=== PATIENT | female | born 1985 | race Caucasian/White ===

== ENCOUNTER 2016-09-02 08:38 | Emergency (ER) | payer MEDICAID ==
[~2016-09-02] VITALS: Ht 180.3 cm; Wt 66.5 kg
[~2016-09-02 08:38] MED LIST: VIST25CA PO
[2016-09-02 08:43] VITALS: BP 117/77; PULSE 77; RESP 16; TEMP 98.1; O2SAT 99
[2016-09-02] MEDS ORDERED: PREV30CA11 PO (09:03)
--- NOTE | 2016-09-02 09:04 | PD ---
HPI Chief Complaint: Abdominal Pain Time Seen by Provider: 08:47 Travel History International Travel<30 days: No Contact w/Intl Traveler<30days: No Traveled to known affect area: No History of Present Illness HPI This 31-year-old female says she is having burning epigastric pain. She says she been having the pain for about a year. 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 She was told was normal and she was put on some medication which she has run out of. The medication didn't seem to help. At times she has dry heaves. She has adjusted her diet. She stopped drinking red bull. She does not eat any hot food. She has stopped coffee. She says the pain has been getting progressively worse. She occasionally smokes pot and seems to get some relief with that. She is to be on a lot of anti-inflammatory medications and does not been taking any of that. She does say she is having some weight. She has little energy. She does not smoke or drink alcohol. She had a tubal ligation 3 years ago. PFSH Past Medical History Hx Anticoagulant Therapy: No Diabetes: No Diminished Hearing: No Hypertension: Yes ?: Not Tubal Ligation: Yes Past Surgical History AICD: No Joint Replacement: No Pacemaker: No Other Surgery: Yes Social History Alcohol Use: No Tobacco Use: No Substance Use: No Allergies-Medications (Allergen,Severity, Reaction): Coded Allergies: Demerol (Verified Allergy, Intermediate, 09/02/16) Reported Meds & Prescriptions Reported Meds & Active Scripts Active Vistaril (Hydroxyzine Pamoate) 25 Mg Cap 25 Mg PO Q8H PRN Review of Systems General / Constitutional: Positive: Weight Loss, No: Fever, Chills Eyes: No: Diploplia, Blurred Vision HENT: No: Headaches, Vertigo Cardiovascular: No: Chest Pain or Discomfort, Palpitations Respiratory: No: Cough Gastrointestinal: Positive: Nausea, Abdominal Pain, Indigestion Genitourinary: No: Frequency, Dysuria Musculoskeletal: No: Myalgias, Arthralgias Skin: No Rash, No Itching Neurologic: Positive: Weakness Psychiatric: No: Anxiety, Depression Physical Exam Narrative GENERAL: Well-developed female SKIN: Focused skin assessment warm/dry. HEAD: Atraumatic. Normocephalic. EYES: Pupils equal and round. No scleral icterus. No injection or drainage. ENT: No nasal bleeding or discharge. Mucous membranes pink and moist. NECK: Trachea midline. No JVD. CARDIOVASCULAR: Regular rate and rhythm. No murmur appreciated. RESPIRATORY: No accessory muscle use. Clear to auscultation. Breath sounds equal bilaterally. GASTROINTESTINAL: Abdomen soft, there is some epigastric tenderness, nondistended. Hepatic and splenic margins not palpable. MUSCULOSKELETAL: No obvious deformities. No clubbing. No cyanosis. No edema. NEUROLOGICAL: Awake and alert. No obvious cranial nerve deficits. Motor grossly within normal limits. Normal speech. PSYCHIATRIC: Appropriate mood and affect; insight and judgment normal. Data Data Last Documented VS Vital Signs Date Time Temp Pulse Resp B/P Pulse Ox O2 Delivery O2 Flow Rate FiO2 09/02/16 08:43 98.1 77 16 117/77 99 Orders Urinalysis - C+S If Indicated (09/02/16 08:45) MDM Medical Decision Making Medical Screen Exam Complete: Yes Emergency Medical Condition: Yes Medical Record Reviewed: Yes Differential Diagnosis Differential includes gastritis, ulcer disease, pancreatitis Narrative Course History is most consistent with gastritis or ulcer disease. I offered to do lab work and CT scan to assess for other etiologies that the patient says she does not have time for these tests at this time. I will prescribe Prevacid and I have recommended that she follow up with her GI doctor Diagnosis Primary Impression: Gastritis Qualified Code: K29.70 - Gastritis without bleeding, unspecified chronicity, unspecified gastritis type Scripts Lansoprazole (Prevacid)30 Mg Capdr30 Mg PO DAILY #30 CAP Ref 0 Prov:John Oconnell MD 09/02/16 Disposition: 01 DISCHARGE HOME Condition: Stable John Oconnell MD September 02, 2016 09:04
== END 2016-09-02 09:21 | disposition home or self-care (01) ==
LOC: PHED 08:38
DX: K29.70 Gastritis, unspecified, without bleeding (principal); R53.1 Weakness; I10 Essential (primary) hypertension
CPT/HCPCS: 99283

== ENCOUNTER 2016-12-11 03:51 | Emergency (ER) | payer MEDICAID ==
[~2016-12-11] VITALS: Ht 180.3 cm; Wt 67.1 kg
[~2016-12-11 03:51] MED LIST changes: +PREV30CA11 PO; -VIST25CA PO
[2016-12-11 04:00] VITALS: BP 126/60; PULSE 72; RESP 18; TEMP 98; O2SAT 97
[2016-12-11 04:11] VITALS: BP 126/60; PULSE 72; RESP 18; TEMP 98; O2SAT 97
[2016-12-11 04:46] VITALS: RESP 18; O2SAT 98
[2016-12-11 04:50] LABS: AUTOMATED NEUTROPHIL # 2.6 TH/MM3 (1.8-7.7); EOSINOPHIL # 0.1 TH/MM3 (0-0.4); EOSINOPHIL % 2.4 % (0.0-4.0); HEMATOCRIT 37.9 % (35.0-46.0); HEMO FLAGS DIFF FINAL; LYMPH % 31.7 % (9.0-44.0); LYMPHOCYTE # 1.6 TH/MM3 (1.0-4.8); MEAN CORPUSCULAR HEMOGLOBIN 28.5 PG (27.0-34.0); MEAN CORPUSCULAR HGB CONC 33.5 % (32.0-36.0); MONO % 12.6 % (0.0-8.0); NEUT % 52.3 % (16.0-70.0); PLATELET COUNT 183 TH/MM3 (150-450); RED BLOOD COUNT 4.46 MIL/MM3 (4.00-5.30); RED CELL DISTRIBUTION WIDTH 11.8 % (11.6-17.2); WHITE BLOOD COUNT 4.9 TH/MM3 (4.0-11.0)
[2016-12-11 04:51] LABS: BLOOD, URINE NEG (NEG); GLUCOSE,URINE NEG (NEG); KETONE, URINE NEG (NEG); NITRITE,URINE NEG (NEG)
[2016-12-11 05:00] LABS: CHLORIDE 104 MEQ/L (98-107); POTASSIUM 4.2 MEQ/L (3.5-5.1); SODIUM (NA) 138 MEQ/L (136-145)
[2016-12-11 05:04] LABS: ANION GAP 5 MEQ/L (5-15); BLOOD UREA NITROGEN 17 MG/DL (7-18)
[2016-12-11 05:07] LABS: ALT (GPT) 18 U/L (10-53); AST (GOT) 13 U/L (15-37); GLOMERULAR FILTRATION RATE 90 ML/MIN (>89)
[2016-12-11 05:08] LABS: TOTAL BILIRUBIN ADULT 0.6 MG/DL (0.2-1.0)
[2016-12-11 05:10] LABS: ALKALINE PHOSPHATASE 66 U/L (45-117)
--- NOTE | 2016-12-11 05:14 | PD ---
HPI Chief Complaint: Abdominal Pain Time Seen by Provider: 04:37 Travel History International Travel<30 days: No Contact w/Intl Traveler<30days: No Traveled to known affect area: No History of Present Illness HPI 31-year-old female presents to the emergency department complaining of 6 days of abdominal pain. Patient states she has had the same abdominal pain 1 year. Patient reports 6 months ago she underwent upper endoscopy that was reportedly normal. Patient reports she's lost 25 pounds since last year due to ongoing pain. Patient denies fever chills nausea vomiting diarrhea or constipation. Patient has noted urinary frequency. Patient denies any chronic medical conditions. Patient status post tubal ligation and denies . The patient rates her pain as 7/10 in intensity. Patient is unable to identify exacerbating or alleviating factors. Patient has taken Excedrin without relief. Patient reports abdominal pain begins in the lower abdomen in the moves cephalad towards the epigastrium. PFSH Past Medical History Narrative Medical Abdominal pain hypertension migraines tubal ligation upper endoscopy; marijuana use; nursing notes reviewed Hx Anticoagulant Therapy: No Diabetes: No Diminished Hearing: No Gastrointestinal Disorders: Yes (ABDOMINAL PAIN X 1 YEAR) Hypertension: Yes Migraines: Yes Tetanus Vaccination: < 5 Years Influenza Vaccination: Yes ?: Unknown Tubal Ligation: Yes Past Surgical History AICD: No Joint Replacement: No Pacemaker: No Other Surgery: Yes Social History Alcohol Use: No Tobacco Use: No Substance Use: Yes (MARIJUANA) Allergies-Medications (Allergen,Severity, Reaction): Coded Allergies: meperidine (Unverified Allergy, Intermediate, 12/11/16) Reported Meds & Prescriptions Reported Meds & Active Scripts Active Anaprox DS (Naproxen Sodium) 550 Mg Tab 550 Mg PO Q12HR Review of Systems Except as stated in HPI: all other systems reviewed are Neg Physical Exam Narrative GENERAL: Well-developed well-nourished female in no acute distress no respiratory distress SKIN: Warm and dry. HEAD: Normocephalic. EYES: No scleral icterus. No injection or drainage. NECK: Supple, trachea midline. No JVD or lymphadenopathy. CARDIOVASCULAR: Regular rate and rhythm without murmurs, gallops, or rubs. RESPIRATORY: Breath sounds equal bilaterally. No accessory muscle use. GASTROINTESTINAL: Abdomen soft, non-tender, nondistended. Pelvic exam: Normal external exam no redness induration or lesions; speculum exam scant cloudy mucous no blood no clots no tissue cervical os is closed; bimanual exam right adnexal tenderness without palpable mass no cervical motion tenderness no left adnexal tenderness or mass cervical os is closed MUSCULOSKELETAL: No cyanosis, or edema. BACK: Nontender without obvious deformity. No CVA tenderness. Data Data Last Documented VS Vital Signs Date Time Temp Pulse Resp B/P (MAP) Pulse Ox O2 Delivery O2 Flow Rate FiO2 12/11/16 06:14 59 18 113/70 (84) 100 Room Air 12/11/16 04:11 98.0 Orders Orders Complete Blood Count With Diff (12/11/16 04:24) Comprehensive Metabolic Panel (12/11/16 04:24) Urinalysis - C+S If Indicated (12/11/16 04:24) Ed Urine Pregnancytest Poc (12/11/16 04:24) Iv Access Insert/Monitor (12/11/16 04:24) Oximetry (12/11/16 04:24) Lipase (12/11/16 04:24) Ketorolac Inj (Toradol Inj) (12/11/16 06:00) Ct Abd/Pel W/O Iv Contrast (12/11/16 ) Us Pelvis Comp W Doppler (12/11/16 06:32) Labs Laboratory Tests Test 12/11/16 04:45 White Blood Count 4.9 TH/MM3 Red Blood Count 4.46 MIL/MM3 Hemoglobin 12.7 GM/DL Hematocrit 37.9 % Mean Corpuscular Volume 85.0 FL Mean Corpuscular Hemoglobin 28.5 PG Mean Corpuscular Hemoglobin Concent 33.5 % Red Cell Distribution Width 11.8 % Platelet Count 183 TH/MM3 Mean Platelet Volume 8.4 FL Neutrophils (%) (Auto) 52.3 % Lymphocytes (%) (Auto) 31.7 % Monocytes (%) (Auto) 12.6 % Eosinophils (%) (Auto) 2.4 % Basophils (%) (Auto) 1.0 % Neutrophils # (Auto) 2.6 TH/MM3 Lymphocytes # (Auto) 1.6 TH/MM3 Monocytes # (Auto) 0.6 TH/MM3 Eosinophils # (Auto) 0.1 TH/MM3 Basophils # (Auto) 0.0 TH/MM3 CBC Comment DIFF FINAL Differential Comment Urine Color YELLOW Urine Turbidity SLIGHT Urine pH 6.0 Urine Specific [place] 1.020 Urine Protein NEG mg/dL Urine Glucose (UA) NEG mg/dL Urine Ketones NEG mg/dL Urine Occult Blood NEG Urine Nitrite NEG Urine Bilirubin NEG Urine Leukocyte Esterase NEG Urine RBC 0-2 /hpf Urine WBC 0-2 /hpf Urine Squamous Epithelial Cells 6-8 /hpf Urine Amorphous Sediment MOD Urine Bacteria NONE /hpf Microscopic Urinalysis Comment CULT NOT INDICATED Blood Urea Nitrogen 17 MG/DL Creatinine 0.75 MG/DL Random Glucose 94 MG/DL Total Protein 7.1 GM/DL Albumin 3.4 GM/DL Calcium Level 8.0 MG/DL Alkaline Phosphatase 66 U/L Aspartate Amino Transf (AST/SGOT) 13 U/L Alanine Aminotransferase (ALT/SGPT) 18 U/L Total Bilirubin 0.6 MG/DL Sodium Level 138 MEQ/L Potassium Level 4.2 MEQ/L Chloride Level 104 MEQ/L Carbon Dioxide Level 29.0 MEQ/L Anion Gap 5 MEQ/L Estimat Glomerular Filtration Rate 90 ML/MIN Lipase 213 U/L [facility] Medical Decision Making Medical Screen Exam Complete: Yes Emergency Medical Condition: Yes Medical Record Reviewed: Yes Interpretation(s) Last Impressions Abdomen/Pelvis CT 12/11/16 0000 Signed Impressions: Service Date/Time: November 05:59 - CONCLUSION: 1. 1 cm nonobstructing right renal calculus. 2. 4.7 cm right adnexal cystic appearing mass most characteristic of an ovarian cyst. Isaac Mancilla MD CBC & BMP Diagram 12/11/16 04:45 Total Protein 7.1, Albumin 3.4, Calcium Level 8.0 L, Alkaline Phosphatase 66, Aspartate Amino Transf (AST/SGOT) 13 L, Alanine Aminotransferase (ALT/SGPT) 18, Total Bilirubin 0.6 Vital Signs Date Time Temp Pulse Resp B/P (MAP) Pulse Ox O2 Delivery O2 Flow Rate FiO2 12/11/16 06:14 59 18 113/70 (84) 100 Room Air 12/11/16 04:46 18 98 Room Air 12/11/16 04:11 98.0 72 18 126/60 (82) 97 12/11/16 04:00 98.0 72 18 126/60 (82) 97 Differential Diagnosis Abdominal pain, irritable bowel syndrome, inflammatory bowel disease, colitis, gastritis, peptic ulcer disease, intermittent biliary colic, pancreatitis, UTI, Narrative Course IV access obtained specimens collected and sent for resulting Total white cell count within normal range Lab values found to be in normal range patient continues complaining of severe pain to the pelvis and lower abdomen CT abdomen and pelvis performed identifies nonobstructing 1 cm midpole kidney stone on the right and a 4.7 cm right adnexal mass/cyst. We'll proceed with ultrasound to evaluate for torsion. Patient pain has decreased from 8-9/10 intensity to 7/10 intensity after Toradol 30 mg IV. 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
[2016-12-11 05:22] LABS: RBC, URINE 0-2 /hpf (0-3); URINE COLOR YELLOW (YELLW/STRAW); WBC, URINE 0-2 /hpf (0-5)
[2016-12-11 05:23] LABS: COMMENT (UR) CULT NOT INDICATED; CULTURE IF INDICATED CULT NOT INDICATED
[2016-12-11] MEDS ORDERED: KETOROLAC TROMETHAMINE 30 MG/ML (IVP) VIAL IV PUSH ONE (06:00)
[2016-12-11 06:14] VITALS: BP 113/70; PULSE 59; RESP 18; O2SAT 100
--- NOTE | 2016-12-11 06:16 | RADRPT ---
EXAM DATE/TIME: 12/11/2016 05:59 [facility] COMPARISON: No previous studies available for comparison. INDICATIONS : Abdominal pain for 5-6 days, weightloss within the last year, pain more on right side. ORAL CONTRAST: No oral contrast ingested. RADIATION DOSE: 7.22 CTDIvol (mGy) MEDICAL HISTORY : Hypertension. SURGICAL HISTORY : Tubal ligation. ENCOUNTER: Initial ACUITY: 4 - 6 days PAIN SCALE: 7/10 LOCATION: abdomen TECHNIQUE: Volumetric scanning of the abdomen and pelvis was performed. Using automated exposure control and ad justment of the mA and/or kV according to patient size, radiation dose was kept as low as reasonably achievable to obtain optimal diagnostic quality images. DICOM format image data is available electro nically for review and comparison. FINDINGS: Lung bases are clear. No acute findings in the liver, spleen, adrenals, left kidney or pancreas. No c alcified gallstones or biliary ductal dilatation. Calculus midpole right kidney measures up to 1 cm i n diameter. No hydronephrosis or obstructive uropathy. There is a 4.7 cm cystic-appearing right adnexal mass, most characteristic of an ovarian cyst. No oth er pelvic masses identified. CONCLUSION: 1. 1 cm nonobstructing right renal calculus. 2. 4.7 cm right adnexal cystic appearing mass most characteristic of an ovarian cyst. Isaac Mancilla MD on December 11, 2016 at 6:10 Board Certified Radiologist. This report was verified electronically.
[2016-12-11] MEDS ORDERED: NAPR550 PO (06:36)
[2016-12-11 07:27] VITALS: BP 117/69; PULSE 76; RESP 16; O2SAT 100
[2016-12-11 08:35] VITALS: BP 134/81; PULSE 70; RESP 16; O2SAT 100
--- NOTE | 2016-12-11 09:11 | RADRPT ---
EXAM DATE/TIME: 12/11/2016 08:00 1[facility] COMPARISON: No previous studies available for comparison. INDICATIONS : Pelvic pain. MEDICAL HISTORY : Hypertension. Pelvic pain. SURGICAL HISTORY : Tubal ligation. ENCOUNTER: Initial ACUITY: > 1 year PAIN SCORE: 4/10 LOCATION: Bilateral pelvis MEASUREMENTS: UTERUS: 10.3 x 4.9 x 6.8 cm ENDOMETRIAL STRIPE: 7 mm RIGHT OVARY: 4.2 x 2.9 x 2.7 cm LEFT OVARY: 3.2 x 2.1 x 2.5 cm FINDINGS: UTERUS: The myometrium has homogeneous echotexture without mass. RIGHT OVARY: There is a 2.4 x 2.1 x 2.1 cm mildly complex hypoechoic area in the right ovary. LEFT OVARY: Ovary contains no mass or significant cystic lesion. MISCELLANEOUS: Minimal fluid is present in the cul-de-sac. CONCLUSION: 1. Complex hypoechoic area in the right ovary most consistent with a complex cyst. 2. Minimal fluid in the cul-de-sac. 3. Unremarkable uterus. Judson Parra MD on December 11, 2016 at 9:08 Board Certified Radiologist. This report was verified electronically.
--- NOTE | 2016-12-11 09:14 | PD ---
Physical Exam Narrative Patient was seen by ED physician and signed out to me. Data Data Last Documented VS Vital Signs Date Time Temp Pulse Resp B/P (MAP) Pulse Ox O2 Delivery O2 Flow Rate FiO2 12/11/16 08:35 70 16 134/81 (98) 100 Room Air 12/11/16 04:11 98.0 Orders Orders Complete Blood Count With Diff (12/11/16 04:24) Comprehensive Metabolic Panel (12/11/16 04:24) Urinalysis - C+S If Indicated (12/11/16 04:24) Ed Urine Pregnancytest Poc (12/11/16 04:24) Iv Access Insert/Monitor (12/11/16 04:24) Oximetry (12/11/16 04:24) Lipase (12/11/16 04:24) Ketorolac Inj (Toradol Inj) (12/11/16 06:00) Ct Abd/Pel W/O Iv Contrast (12/11/16 ) Us Pelvis Comp W Doppler (12/11/16 06:32) Labs Laboratory Tests Test 12/11/16 04:45 White Blood Count 4.9 TH/MM3 Red Blood Count 4.46 MIL/MM3 Hemoglobin 12.7 GM/DL Hematocrit 37.9 % Mean Corpuscular Volume 85.0 FL Mean Corpuscular Hemoglobin 28.5 PG Mean Corpuscular Hemoglobin Concent 33.5 % Red Cell Distribution Width 11.8 % Platelet Count 183 TH/MM3 Mean Platelet Volume 8.4 FL Neutrophils (%) (Auto) 52.3 % Lymphocytes (%) (Auto) 31.7 % Monocytes (%) (Auto) 12.6 % Eosinophils (%) (Auto) 2.4 % Basophils (%) (Auto) 1.0 % Neutrophils # (Auto) 2.6 TH/MM3 Lymphocytes # (Auto) 1.6 TH/MM3 Monocytes # (Auto) 0.6 TH/MM3 Eosinophils # (Auto) 0.1 TH/MM3 Basophils # (Auto) 0.0 TH/MM3 CBC Comment DIFF FINAL Differential Comment Urine Color YELLOW Urine Turbidity SLIGHT Urine pH 6.0 Urine Specific [place] 1.020 Urine Protein NEG mg/dL Urine Glucose (UA) NEG mg/dL Urine Ketones NEG mg/dL Urine Occult Blood NEG Urine Nitrite NEG Urine Bilirubin NEG Urine Leukocyte Esterase NEG Urine RBC 0-2 /hpf Urine WBC 0-2 /hpf Urine Squamous Epithelial Cells 6-8 /hpf Urine Amorphous Sediment MOD Urine Bacteria NONE /hpf Microscopic Urinalysis Comment CULT NOT INDICATED Blood Urea Nitrogen 17 MG/DL Creatinine 0.75 MG/DL Random Glucose 94 MG/DL Total Protein 7.1 GM/DL Albumin 3.4 GM/DL Calcium Level 8.0 MG/DL Alkaline Phosphatase 66 U/L Aspartate Amino Transf (AST/SGOT) 13 U/L Alanine Aminotransferase (ALT/SGPT) 18 U/L Total Bilirubin 0.6 MG/DL Sodium Level 138 MEQ/L Potassium Level 4.2 MEQ/L Chloride Level 104 MEQ/L Carbon Dioxide Level 29.0 MEQ/L Anion Gap 5 MEQ/L Estimat Glomerular Filtration Rate 90 ML/MIN Lipase 213 U/L MDM Supervised Visit with FLAVIO: No Interpretation(s) Last Impressions Abdomen/Pelvis CT 12/11/16 0000 Signed Impressions: Service Date/Time: November 05:59 - CONCLUSION: 1. 1 cm nonobstructing right renal calculus. 2. 4.7 cm right adnexal cystic appearing mass most characteristic of an ovarian cyst. Isaac Mancilla MD 9:13 AM. Pelvic ultrasound shows complex cyst right ovary. 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
== END 2016-12-11 09:33 | disposition home or self-care (01) ==
LOC: PHED 03:51
DX: N83.201 Unspecified ovarian cyst, right side (principal); N20.0 Calculus of kidney; I10 Essential (primary) hypertension; Z98.51 Tubal ligation status
CPT/HCPCS: 74176; 76856; 80053; 81001; 83690; 84703; 85025; 93975; 96374; 99285; J1885

== ENCOUNTER 2016-12-24 15:30 | Emergency (ER) | payer MEDICAID ==
[~2016-12-24] VITALS: Ht 180.3 cm; Wt 65.2 kg
[~2016-12-24 15:30] MED LIST changes: +NAPR550 PO; -PREV30CA11 PO
[2016-12-24 15:42] VITALS: BP 141/81; PULSE 78; RESP 16; TEMP 98.4; O2SAT 98
[2016-12-24] MEDS ORDERED: HYDR-3534 PO (16:11)
--- NOTE | 2016-12-24 16:12 | PD ---
HPI Chief Complaint: Pain: Acute or Chronic Time Seen by Provider: 15:53 Travel History International Travel<30 days: No Contact w/Intl Traveler<30days: No Traveled to known affect area: No History of Present Illness HPI This 31-year-old female is complaining of right lower quadrant. She says she's been having the pain for quite some time. She was a patient in the emergency department on December 11. At that time a CT scan and an ultrasound of the pelvis which showed that she had a right ovarian cyst. She is given a prescription for anti-inflammatory medicine but was not able to get it filled because it was not covered by her insurance. He has been having ongoing pain. She has a history of a tubal ligation. She has not had fever chills or vomiting. The pain is aggravated when she works. PFSH Past Medical History Hx Anticoagulant Therapy: No Diabetes: No Diminished Hearing: No Gastrointestinal Disorders: Yes (ABDOMINAL PAIN X 1 YEAR) Hypertension: Yes Kidney Stones: Yes Reproductive: Yes (OVARON CYST) Migraines: Yes Tetanus Vaccination: < 5 Years Influenza Vaccination: Yes ?: Not LMP: NOW Tubal Ligation: Yes Past Surgical History AICD: No Joint Replacement: No Pacemaker: No Other Surgery: Yes Social History Alcohol Use: No Tobacco Use: No Substance Use: Yes (MARIJUANA) Allergies-Medications (Allergen,Severity, Reaction): Coded Allergies: meperidine (Unverified Allergy, Intermediate, 12/24/16) Reported Meds & Prescriptions Reported Meds & Active Scripts Active No Active Prescriptions or Reported Medications Review of Systems General / Constitutional: No: Fever, Chills HENT: No: Headaches Gastrointestinal: No: Vomiting, Diarrhea Skin: No Rash Hematologic/Lymphatic: No: Easy Bruising Physical Exam Narrative GENERAL: Well-appearing female SKIN: Focused skin assessment warm/dry. HEAD: Atraumatic. Normocephalic. EYES: Pupils equal and round. No scleral icterus. No injection or drainage. ENT: No nasal bleeding or discharge. Mucous membranes pink and moist. NECK: Trachea midline. No JVD. CARDIOVASCULAR: Regular rate and rhythm. No murmur appreciated. RESPIRATORY: No accessory muscle use. Clear to auscultation. Breath sounds equal bilaterally. GASTROINTESTINAL: Abdomen soft, there is some right lower quadrant tenderness, nondistended. Hepatic and splenic margins not palpable. MUSCULOSKELETAL: No obvious deformities. No clubbing. No cyanosis. No edema. NEUROLOGICAL: Awake and alert. No obvious cranial nerve deficits. Motor grossly within normal limits. Normal speech. PSYCHIATRIC: Appropriate mood and affect; insight and judgment normal. Data Data Last Documented VS Vital Signs Date Time Temp Pulse Resp B/P (MAP) Pulse Ox O2 Delivery O2 Flow Rate FiO2 12/24/16 15:48 (101) 12/24/16 15:42 98.4 78 16 98 Room Air Orders Orders Ed Urine Pregnancytest Poc (12/24/16 15:49) MDM Medical Decision Making Medical Screen Exam Complete: Yes Emergency Medical Condition: Yes Medical Record Reviewed: Yes Differential Diagnosis Differential includes right ovarian cyst Narrative Course Patient is known to have ovarian cyst diagnosed by ultrasound and CT. She has not been taking anything for pain and has been quite uncomfortable Diagnosis Primary Impression: Right ovarian cyst Scripts Hydrocodone-Acetaminophen (Lortab) 7.5-325 Mg Tab 1 TAB PO Q4H Y for PAIN, #30 TAB 0 Refills Prov: John Oconnell MD 12/24/16 Disposition: 01 DISCHARGE HOME Condition: Stable John Oconnell MD Dec 24, 2016 16:12
[2016-12-24] MEDS ORDERED: ACETAMINOPHEN/HYDROcodone 325 MG/5 MG TAB PO ONE (16:15)
[2016-12-24 17:03] VITALS: RESP 18
== END 2016-12-24 17:05 | disposition home or self-care (01) ==
LOC: PHED 15:30
DX: N83.201 Unspecified ovarian cyst, right side (principal); I10 Essential (primary) hypertension; Z87.19 Personal history of other diseases of the digestive system; Z87.442 Personal history of urinary calculi; Z87.42 Personal history of other diseases of the female genital tract; Z86.69 Personal history of other diseases of the nervous system and sense organs
CPT/HCPCS: 84703; 99283

== ENCOUNTER 2017-07-18 13:16 | Emergency (ER) | payer MEDICAID, OTHER ==
[~2017-07-18] VITALS: Ht 180.3 cm; Wt 68.0 kg
[~2017-07-18 13:16] MED LIST changes: +HYDR-3534 PO; -NAPR550 PO
[2017-07-18 13:21] VITALS: BP 125/79; PULSE 100; RESP 18; TEMP 98; O2SAT 99
[2017-07-18] MEDS ORDERED: SODIUM CHLOR 0.9% 1000 ML INJ 1,000 ML IV SCH (13:39)
[2017-07-18] MEDS ORDERED: SODIUM CHLORIDE 0.9% FLUSH 10 ML FLUSH IVF PRN (13:45)
[2017-07-18] MEDS ORDERED: MORPHINE SULFATE 4 MG/ML INJ IV PUSH ONE (13:45)
[2017-07-18] MEDS ORDERED: ONDANSETRON HCL 4 MG/2 ML VIAL IV PUSH ONE (13:45)
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
[2017-07-18 14:06] LABS: AUTOMATED NEUTROPHIL # 3.7 TH/MM3 (1.8-7.7); BASOPHIL # 0.1 TH/MM3 (0-0.2); BASOPHIL % 1.1 % (0.0-2.0); EOSINOPHIL % 0.8 % (0.0-4.0); HEMATOCRIT 38.3 % (35.0-46.0); HEMOGLOBIN 12.7 GM/DL (11.6-15.3); LYMPH % 18.8 % (9.0-44.0); MEAN CELL VOLUME 85.9 FL (80.0-100.0); MEAN CORPUSCULAR HEMOGLOBIN 28.6 PG (27.0-34.0); MEAN CORPUSCULAR HGB CONC 33.2 % (32.0-36.0); MEAN PLATELET VOLUME 8.2 FL (7.0-11.0); MONO % 10.2 % (0.0-8.0); MONOCYTE # 0.5 TH/MM3 (0-0.9); NEUT % 69.1 % (16.0-70.0); PLATELET COUNT 201 TH/MM3 (150-450); RED BLOOD COUNT 4.45 MIL/MM3 (4.00-5.30); RED CELL DISTRIBUTION WIDTH 12.2 % (11.6-17.2); WHITE BLOOD COUNT 5.3 TH/MM3 (4.0-11.0)
[2017-07-18 14:14] LABS: BLOOD, URINE LARGE (NEG); GLUCOSE,URINE NEG (NEG); KETONE, URINE TRACE mg/dL (NEG); NITRITE,URINE POS (NEG); URINE COLOR YELLOW (YELLW/STRAW); URINE LEUKOCYTE ESTERASE TRACE (NEG)
[2017-07-18 14:17] LABS: CHLORIDE 103 MEQ/L (98-107); SODIUM (NA) 137 MEQ/L (136-145)
[2017-07-18 14:19] LABS: BILIRUBIN, URINE NEG (NEG)
[2017-07-18 14:20] LABS: CALCIUM 8.6 MG/DL (8.5-10.1)
[2017-07-18 14:21] LABS: ALBUMIN 3.7 GM/DL (3.4-5.0); BLOOD UREA NITROGEN 9 MG/DL (7-18); GLUCOSE,RANDOM 91 MG/DL (74-106)
[2017-07-18 14:24] LABS: RBC, URINE INNUM /hpf (0-3)
[2017-07-18 14:24] LABS: ALT (GPT) 40 U/L (10-53); AST (GOT) 18 U/L (15-37); CREATININE 0.82 MG/DL (0.50-1.00); GLOMERULAR FILTRATION RATE 80 ML/MIN (>89)
[2017-07-18 14:25] LABS: BACTERIA, URINE FEW /hpf; SQUAMOUS EPITHELIAL CELL URINE > 8 /hpf (0-5)
[2017-07-18 14:25] LABS: TOTAL BILIRUBIN ADULT 1.6 MG/DL (0.2-1.0); TOTAL PROTEIN 7.6 GM/DL (6.4-8.2)
[2017-07-18 14:26] LABS: ALKALINE PHOSPHATASE 81 U/L (45-117)
[2017-07-18 14:29] VITALS: BP 113/63; PULSE 77; RESP 20; O2SAT 97; O2SAT 98
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
[2017-07-18] MEDS ORDERED: IOHEXOL 350 MG/ML 10 ML VIAL (for RAD DIAG) IVCONTRAST ONE (15:21)
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
[2017-07-18 15:28] VITALS: BP 115/70; PULSE 76; RESP 20; O2SAT 98
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
[2017-07-18] MEDS ORDERED: TAMS5CAP PO (17:16)
[2017-07-18] MEDS ORDERED: BACT800T5 PO (17:16)
[2017-07-18] MEDS ORDERED: IBUP-232 PO (17:16)
[2017-07-18] MEDS ORDERED: ROBA750T PO (17:16)
== END 2017-07-18 17:36 | disposition home or self-care (01) ==
LOC: PHEFT 13:16
DX: S16.1XXA Strain of muscle, fascia and tendon at neck level, initial encounter (principal); N30.01 Acute cystitis with hematuria; N20.0 Calculus of kidney; I10 Essential (primary) hypertension; V49.49XA Driver injured in collision with other motor vehicles in traffic accident, initial encounter; Y92.410 Unspecified street and highway as the place of occurrence of the external cause
CPT/HCPCS: 71045; 72072; 72125; 72132; 73030; 73110; 73590; 74177; 80053; 81001; 84703; 85025; 87086; 96361; 96374; 96375; 99285; J2270; J2405; J7030; Q9967